=== PATIENT | male | born 1955 | race Caucasian/White ===

== ENCOUNTER → 2016-07-01 | Outpatient (CLI) | payer OTHER ==
[~2016-07-01] MED LIST: ACCUNEB SO1.25 MG/1 INH; ADDERALL 10 MG10 MG PO; CENTRUM SILVER1 EAC2 PO; CITALOPRAM HBR40 MG PO; DIAZEPAM 10 MG10 M1 PO; FENTANYL PA25 MCG/HR TRANSDERM; NORCO 5-325 TA1 EACH PO; TRAZODONE HCL50 MG PO
== END ==
LOC: MRI
DX: M47.22 Other spondylosis with radiculopathy, cervical region (principal); M48.02 Spinal stenosis, cervical region; M25.78 Osteophyte, vertebrae

== ENCOUNTER 2016-07-02 05:24 | Day surgery (SDC) | payer OTHER ==
[~2016-07-02] VITALS: Ht 170.2 cm; Wt 67.1 kg
--- NOTE | ~2016-07-02 | O ---
[facility] [place] [address] OPERATIVE REPORT Name: MICHAEL LACEY Room #: DEP [facility]..#: [id number] Admission: 07/02/16 Attend Phys: Wesley West MD Discharge: 07/02/16 Date of : 55 Report #: [id number] THIS REPORT FOR: //name// CC: Timothy West PREOPERATIVE DIAGNOSES: Upper extremity weakness, numbness and swelling. Elevated CPK. POSTOPERATIVE DIAGNOSES: Upper extremity weakness, numbness and swelling. Elevated CPK. PROCEDURES PERFORMED: Muscle biopsy of right and left deltoid muscle. ANESTHETIC: Local 0.25% Marcaine plain. COMPLICATIONS: None. ESTIMATED BLOOD LOSS: 5 mL. PROCEDURE NOTE: With the patient in supine position, the area of the deltoid was prepped and ____ off in sterile fashion. Local anesthetic was injected through the skin and subcutaneous tissue. Incision about 3 cm was made over the deltoid on the right side down to the fascia. The fascia was divided. The muscle was identified. The muscle appeared normal. Section of muscle was isolated with hemostat measuring a few millimeters thick by about a centimeter and a half width. Muscle clamp was placed on the muscle. The ends were trimmed off with a sharp scissor. Cautery was then used for hemostasis. The subcutaneous and fascia tissue was brought together with 4-0 PDS. Skin was closed with 5-0 PDS running subcuticular fashion. An identical procedure was then performed on the left side. Same amount of muscle was removed, placed on the muscle clamp. Both specimen were placed in saline moistened gauze ____ ice. Per pathologist's instruction, specimen were taken to pathology. The patient tolerated the procedure well. By: [id number] Wesley West MD /nt
--- NOTE | ~2016-07-02 | S ---
[facility] [address] [place] [address] SURGICAL PATH RPT PROCEDURE Name: MICHAEL LACEY Room #: 150-2 [facility] M.R.#: [id number] Admission: 07/02/16 Date of : 55 Discharge: Report #: [id number] Path Case #: [id number] PATHOLOGY REPORT DRAFT COLLECTION DATE: 07/02/2016 RECEIVED DATE: 07/02/2016 SPECIMEN(S) RECEIVED: A.Muscle biopsy right deltoid B.Muscle biopsy left deltoid
[2016-07-02 07:50] LABS: HEMATOCRIT 38.7 % (42.0-52.0); HEMOGLOBIN 13.4 gm/dL (14.0-18.0)
[2016-07-02 08:25] VITALS: BP 128/85
[2016-07-02] MEDS ORDERED: NORCO 5-325 TA1 EACH PO (10:07)
[2016-07-02 10:26] VITALS: BP 128/85
== END 2016-07-02 10:45 | disposition home or self-care (01) ==
LOC: TBA 05:24 → OR 05:24 → TBA 05:26 → OR 07:56
PROVIDERS: Surgery
DX: M62.81 Muscle weakness (generalized) (principal); F32.9 Major depressive disorder, single episode, unspecified; F41.9 Anxiety disorder, unspecified; F90.9 Attention-deficit hyperactivity disorder, unspecified type; F17.210 Nicotine dependence, cigarettes, uncomplicated; J45.909 Unspecified asthma, uncomplicated; G47.33 Obstructive sleep apnea (adult) (pediatric)
CPT/HCPCS: 50010; 50101; 50386; 50403; 51301; 51477; 56525; 56526; 56805

== ENCOUNTER → 2016-08-29 | Outpatient (CLI) | payer OTHER | LOC: MRI 08:06 | DX: M47.896 Other spondylosis, lumbar region (principal); M51.26 Other intervertebral disc displacement, lumbar region ==

== ENCOUNTER 2017-06-02 15:40 | Emergency (ER) | payer OTHER ==
[~2017-06-02] VITALS: Ht 170.2 cm; Wt 77.1 kg
[2017-06-02] MEDS ORDERED: HYDROCODONE-AP1 EAC6 PO (16:25)
[2017-06-02] MEDS ORDERED: MOBIC15 MG PO (16:25)
== END 2017-06-02 17:06 | disposition home or self-care (01) ==
LOC: ER 15:40
DX: S16.1XXA Strain of muscle, fascia and tendon at neck level, initial encounter (principal); M48.02 Spinal stenosis, cervical region; F17.210 Nicotine dependence, cigarettes, uncomplicated; G89.29 Other chronic pain; M54.5 Low back pain; J45.909 Unspecified asthma, uncomplicated; F90.9 Attention-deficit hyperactivity disorder, unspecified type; V49.69XA Unspecified car occupant injured in collision with other motor vehicles in traffic accident, initial encounter; Y93.89 Activity, other specified; Y92.89 Other specified places as the place of occurrence of the external cause; Y99.8 Other external cause status

== ENCOUNTER → 2018-11-24 | Outpatient (CLI) | payer OTHER ==
[~2018-11-24] MED LIST changes: +HYDROCODONE-AP1 EAC6 PO; +MOBIC15 MG PO; +PROPRANOLOL 1010 MG PO
== END ==
LOC: MRI 10-11 15:09
DX: M47.22 Other spondylosis with radiculopathy, cervical region (principal); M48.02 Spinal stenosis, cervical region